=== PATIENT | male | born 1945 | race Caucasian/White ===

== ENCOUNTER 2018-08-15 23:02 | Inpatient (IN) ==
[2018-08-16] MEDS ORDERED: ONDANSETRON 4 MG/2 ML VIAL IV PRN (00:26)
[2018-08-16] MEDS ORDERED: ACETAMINOPHEN 325 MG TABLET PO PRN (00:26)
[2018-08-16] MEDS: SODIUM CHLORIDE 0.9% 1,000 ML IV SCH ×4 (01:37→21:08)
[2018-08-16] MEDS: PIPERACILLIN/TAZOBACTAM 3,375 MG in SODIUM CHLORIDE 0.9% 100 ML IV SCH ×3 (01:38→16:55)
[2018-08-16] MEDS: HYDROmorphone 2 MG/1 ML VIAL IV PRN ×2 (03:15→11:23)
[2018-08-16 05:16] LABS: Basophils % 0.1 % (0.0-0.8); Hematocrit 36.1 VOL% (42.0-52.0); Immature Granulocytes % 0.6 %; Immature Granulocytes Absolute 0.09 #; Lymphocytes # 0.7 10*3/uL (1.4-4.0); Lymphocytes % 4.6 % (21.2-54.2); Mean Corpuscular HGB Conc 33.2 GM/DL (32-36); Mean Corpuscular Hemoglobin 31 PG (27-34); Mean Corpuscular Volume 94.3 FL (87-102); Monocytes % 6.7 % (1.7-12.7); Neutrophils # 13.2 10*3/uL (1.4-7.4); Platelet Count 235 T/CUMM (130-400); Red Blood Count 3.83 MC/CUMM (3.8-5.5); Red Cell Distribution Width 12.9 % (9.3-17.3)
[2018-08-16 05:38] LABS: Albumin 3.5 G/DL (3.4-5.0); Bilirubin,Total 0.6 MG/DL (0.2-1.0); Calcium 8.7 MG/DL (8.5-10.1); Osmolality,Calculated 282.5 MOS/KG (273-304); Potassium 3.7 MMOL/L (3.5-5.1); Total Protein 6.7 G/DL (6.4-8.3)
[2018-08-16 05:39] LABS: Band Neutrophils 1 % (0-10); Lymphocytes 6 % (20-55); Platelet Estimate Normal; Segmented Neutrophils 88 % (50-85); Total Cells Counted 100
[2018-08-16] MEDS: PANTOPRAZOLE 40 MG VIAL IV SCH (09:06)
[2018-08-16] MEDS: ENOXAPARIN 40 MG/0.4 ML SYRINGE SUBCUT SCH (09:21)
[2018-08-16] MEDS ORDERED: hydrALAZINE 20 MG/1 ML VIAL IV PRN (09:58)
[2018-08-17] MEDS: PIPERACILLIN/TAZOBACTAM 3,375 MG in SODIUM CHLORIDE 0.9% 100 ML IV SCH ×3 (00:33→16:46)
[2018-08-17 06:19] LABS: Basophils % 0.2 % (0.0-0.8); Eosinophils % 0.3 % (0.00-10.9); Hematocrit 33.4 VOL% (42.0-52.0); Immature Granulocytes % 0.8 %; Immature Granulocytes Absolute 0.11 #; Lymphocytes # 1.1 10*3/uL (1.4-4.0); Lymphocytes % 8.2 % (21.2-54.2); Mean Corpuscular HGB Conc 32.9 GM/DL (32-36); Mean Corpuscular Hemoglobin 31 PG (27-34); Mean Corpuscular Volume 95.4 FL (87-102); Mean Platelet Volume 12.3 FL (9.6-12.0); Monocytes # 1.6 10*3/uL (0.11-0.8); Neutrophils # 10.6 10*3/uL (1.4-7.4); Neutrophils % 78.5 % (38.7-73.9); Platelet Count 191 T/CUMM (130-400); Red Cell Distribution Width 13.2 % (9.3-17.3); White Blood Count 13.5 T/CUMM (4-12)
[2018-08-17 06:47] LABS: Calcium 8.1 MG/DL (8.5-10.1); Osmolality,Calculated 292.8 MOS/KG (273-304); Potassium 3.2 MMOL/L (3.5-5.1)
[2018-08-17] MEDS: ENOXAPARIN 40 MG/0.4 ML SYRINGE SUBCUT SCH (08:19)
[2018-08-17] MEDS: PANTOPRAZOLE 40 MG VIAL IV SCH (08:20)
[2018-08-17] MEDS: POTASSIUM CHLORIDE 20 MEQ/15 ML UDCUP PER TUBE PRN ×6 (08:24→23:46)
[2018-08-18] MEDS: PIPERACILLIN/TAZOBACTAM 3,375 MG in SODIUM CHLORIDE 0.9% 100 ML IV SCH ×3 (00:31→15:32)
[2018-08-18] MEDS: SODIUM CHLORIDE 0.9% 1,000 ML IV SCH ×5 (00:31→21:15)
[2018-08-18 04:44] LABS: Basophils % 0.2 % (0.0-0.8); Eosinophils # 0.2 10*3/uL (0.0-0.87); Eosinophils % 1.6 % (0.00-10.9); Hematocrit 29.9 VOL% (42.0-52.0); Hemoglobin 9.6 GM/DL (14.0-18.0); Immature Granulocytes % 0.6 %; Immature Granulocytes Absolute 0.06 #; Lymphocytes # 1.4 10*3/uL (1.4-4.0); Lymphocytes % 14.1 % (21.2-54.2); Mean Corpuscular HGB Conc 32.1 GM/DL (32-36); Mean Corpuscular Hemoglobin 31 PG (27-34); Mean Corpuscular Volume 97.7 FL (87-102); Mean Platelet Volume 12.3 FL (9.6-12.0); Monocytes # 1.3 10*3/uL (0.11-0.8); Monocytes % 12.5 % (1.7-12.7); Neutrophils # 7.2 10*3/uL (1.4-7.4); Platelet Count 151 T/CUMM (130-400); Red Blood Count 3.06 MC/CUMM (3.8-5.5); Red Cell Distribution Width 13.2 % (9.3-17.3); White Blood Count 10.1 T/CUMM (4-12)
[2018-08-18 05:14] LABS: Calcium 7.8 MG/DL (8.5-10.1); Osmolality,Calculated 283.1 MOS/KG (273-304); Potassium 3.8 MMOL/L (3.5-5.1)
[2018-08-18] MEDS: ENOXAPARIN 40 MG/0.4 ML SYRINGE SUBCUT SCH (08:31)
[2018-08-18] MEDS: PANTOPRAZOLE 40 MG VIAL IV SCH (08:32)
[2018-08-19] MEDS: PIPERACILLIN/TAZOBACTAM 3,375 MG in SODIUM CHLORIDE 0.9% 100 ML IV SCH ×2 (00:36→08:44)
[2018-08-19] MEDS: SODIUM CHLORIDE 0.9% 1,000 ML IV SCH ×2 (07:18→10:25)
[2018-08-19] MEDS: ENOXAPARIN 40 MG/0.4 ML SYRINGE SUBCUT SCH (08:44)
[2018-08-19] MEDS: PANTOPRAZOLE 40 MG VIAL IV SCH (08:45)
[2018-08-19 11:58] VITALS: BP 143/80
== END 2018-08-19 12:35 | disposition home or self-care (01) | DRG 389 ==
LOC: EDUNIT# → EDBD → N.ED 23:02 → N.EDINP 23:44 → N.3E 08-16 00:06
PROVIDERS: ADMIT Surgery; ATTEND Surgery